=== PATIENT | male | born 1990 | race Caucasian/White ===

== ENCOUNTER 2023-02-16 16:34 | Emergency (ER) | payer MEDICARE ==
[2023-02-16 16:56] LABS: BASOPHILS PERCENT AUTO 0.4 % (0.2-1.2); EOSINOPHILS ABSOLUTE AUTO 0.1 x10^3/uL (0.0-0.5); EOSINOPHILS PERCENT AUTO 1.1 % (0.0-4.0); HEMATOCRIT 48.3 % (40.0-52.0); HEMOGLOBIN 17.8 g/dL (14.0-18.0); IMMATURE GRAN ABSOLUTE AUTO 0.01 x10^3/uL (0.00-0.07); LYMPHOCYTES ABSOLUTE AUTO 1.4 x10^3/uL (1.0-4.8); LYMPHOCYTES PERCENT AUTO 17.4 % (25.0-50.0); MEAN CORPUSCULAR HEMOGLOBIN 31.5 pg (26.0-32.0); MEAN CORPUSCULAR HGB CONC 36.9 g/dL (32.0-36.0); MEAN CORPUSCULAR VOLUME 85.5 fL (78.0-93.0); MONOCYTES ABSOLUTE AUTO 0.8 x10^3/uL (0.0-0.8); MONOCYTES PERCENT AUTO 9.7 % (2.0-11.0); NEUTROPHILS ABSOLUTE AUTO 5.8 x10^3/uL (1.8-7.7); NEUTROPHILS PERCENT AUTO 71.3 % (50.0-80.0); PLATELET COUNT,PLT 262 x10^3/uL (130-400); RED BLOOD CELL COUNT 5.65 x10^6/uL (4.5-6.0); WHITE BLOOD CELL COUNT,WBC 8.2 x10^3/uL (4.0-10.0)
[2023-02-16] MEDS ORDERED: Sodium Chloride 0.9% 10 ML Syringe FLUSH PRN (16:57)
[2023-02-16 17:14] LABS: APPEARANCE,URINE CLEAR (CLEAR); BILIRUBIN,URINE SMALL (NEGATIVE); COLOR,URINE DARK YELLOW (YELLOW); GLUCOSE,URINE NEGATIVE (NEGATIVE); KETONES,URINE 15 mg/dL (NEGATIVE); LEUKOCYTE ESTERASE,URINE NEGATIVE (NEGATIVE); NITRITE,URINE NEGATIVE (NEGATIVE); OCCULT BLOOD,URINE NEGATIVE (NEGATIVE); PROTEIN,URINE 100 mg/dL (NEGATIVE); UROBILINOGEN,URINE 0.2 EU/dL (0.2)
[2023-02-16 17:16] LABS: AMPHETAMINES SCREEN, URINE POSITIVE (NEGATIVE); BARBITURATE SCREEN,URINE NEGATIVE (NEGATIVE); BENZODIAZEPINES SCREEN,URINE NEGATIVE (NEGATIVE); COCAINE METABOLITES,URINE NEGATIVE (NEGATIVE); METHADONE SCREEN, URINE NEGATIVE (NEGATIVE); METHAMPHETAMINE SCREEN, URINE POSITIVE (NEGATIVE); OXYCODONE SCREEN,URINE NEGATIVE (NEGATIVE); PCP SCREEN,URINE NEGATIVE (NEGATIVE); THC SCREEN,URINE 50 NG/ML POSITIVE (NEGATIVE)
[2023-02-16 17:17] LABS: BUPRENORPHINE SCREEN,URINE NEGATIVE (NEGATIVE)
[2023-02-16 17:19] LABS: PROTHROMBIN TIME 10.7 SEC (9.5-12.2); PTT,PARTIAL THROMBOPLSTIN TIME 25.6 SEC (23.6-33.6)
[2023-02-16 17:23] LABS: A/G RATIO 1.07; ALANINE AMINOTRANSFERASE,ALT 28 U/L (16-63); ALBUMIN 4.4 g/dL (3.4-5.0); ALKALINE PHOSPHATASE 73 U/L (46-116); ASPARTATE AMNIOTRANSFERASE,AST 24 U/L (15-37); BILIRUBIN TOTAL 1.4 mg/dL (0.2-1.0); BLOOD UREA NITROGEN,BUN 21 mg/dL (7-18); C-REACTIVE PROTEIN 1.43 mg/dL (<=0.30); CALCIUM 9.4 mg/dL (8.5-10.1); CARBON DIOXIDE,CO2 30 mmol/L (21-32); CHLORIDE,CL 105 mmol/L (98-107); ETHANOL BLOOD MEDICAL 5 mg/dL (0-3); GLUCOSE RANDOM 110 mg/dL (70-99); MAGNESIUM 1.9 mg/dL (1.8-2.4); PHOSPHORUS 5.2 mg/dL (2.6-4.7); POTASSIUM,K 4.3 mmol/L (3.5-5.1); PROTEIN TOTAL,TP 8.5 g/dL (6.4-8.2); SODIUM,NA 149 mmol/L (136-145); TSH ULTRASENSITIVE 1.986 uIU/mL (0.358-3.74)
[2023-02-16 17:26] LABS: ACETAMINOPHEN 0 ug/ml (10-30); ANION GAP 18.3 mmol/L (5-15); ESTIMATED GFR 44 mL/min (>=60)
[2023-02-16 17:27] LABS: AMORPHOUS SEDIMENT,URINE MODERATE; BACTERIA,URINE NOT SEEN /HPF (NOT SEEN); GRANULAR CASTS,URINE RARE; HYALINE CASTS,URINE FEW; MUCUS,URINE MANY /LPF (NOT SEEN); RBC,URINE 0-5 /HPF (NOT SEEN); SQUAMOUS EPITHELIAL CELLS,UR RARE /HPF (NOT SEEN); WBC,URINE 0-5 /HPF (NOT SEEN)
[2023-02-16 17:38] LABS: LACTIC ACID 3.4 mmol/L (0.4-2.0)
[2023-02-16 18:06] LABS: BASE EXCESS ARTERIAL,POC -1 mmol/L ((-2)-3); HCO3 ARTERIAL,POC 24.7 mmol/L (21-28); O2 SATURATION ARTERIAL,POC 99.9 % (94-98); PCO2 ARTERIAL,POC 43 mmHg (35-48); PH ARTERIAL,POC 7.37 pH (7.35-7.45); PO2 ARTERIAL,POC 346 mmHg (83-108); TCO2 ARTERIAL,POC 24.8 mmol/L (22-29)
[2023-02-16] MEDS ORDERED: Midazolam 1 MG/ML 2 ML SDV ONE (18:34)
[2023-02-16] MEDS ORDERED: Rocuronium 50 MG/5 ML Vial ONE (18:35)
== END 2023-02-16 19:00 | disposition short-term general hospital (02) ==
LOC: VM.ED 16:34
DX: T67.01XA Heatstroke and sunstroke, initial encounter (principal); F19.129 Other psychoactive substance abuse with intoxication, unspecified; Z88.0 Allergy status to penicillin; Z88.8 Allergy status to other drugs, medicaments and biological substances; Z88.4 Allergy status to anesthetic agent
CPT/HCPCS: 31500; 36415; 36600; 43752; 51702; 70450; 71045; 80053; 80143; 80179; 80305-QW; 80307; 81001; 82140; 82550; 82803; 83605; 83735; 84100; 84443; 84484; 85025; 85610; 85730; 86140; 93005; 93010; 94002; 96365; 96366; 96375; 99284; 99291-25; 99292